=== PATIENT | female | born 1980 | race Caucasian/White ===

== ENCOUNTER → 2019-01-06 | Outpatient (CLI) | payer OTHER ==
[~2019-01-06] MED LIST: METR45GE TP; NORG1TAB90 PO; TRAM50TA2 PO
[2019-01-06 16:35] LABS: BASOPHILS # (AUTO) 0.04 x10^3/uL (0-0.1); BASOPHILS % (AUTO) 0 % (0-1); EOSINOPHILS # (AUTO) 0.17 x10^3/uL (0-0.4); EOSINOPHILS % (AUTO) 2 % (1-7); LYMPHOCYTES # (AUTO) 3.05 x10^3/uL (1-3.4); LYMPHOCYTES % (AUTO) 27 % (22-44); MD NO; MEAN CORPUSCULAR HEMOGLOBIN 28.8 pg (27.0-34.8); MEAN CORPUSCULAR VOLUME 87.1 fL (80-100); MEAN PLATELET VOLUME 8.6 fL (7.4-10.4); MONOCYTES # (AUTO) 0.58 x10^3/uL (0.2-0.8); MONOCYTES % (AUTO) 5 % (2-9); NEUTROPHILS # (AUTO) 7.42 x10^3/uL (1.8-6.8); NEUTROPHILS % (AUTO) 66 % (42-75); PLATELET COUNT 295 x10^3/uL (130-400); RED BLOOD COUNT 4.64 x10^6/uL (3.82-5.3); RED CELL DISTRIBUTION WIDTH 12.9 % (9.6-15.2)
[2019-01-06 16:47] LABS: INTERNATIONAL NORMALIZED RATIO 0.9 (0.93-1.1); PROTHROMBIN TIME 9.5 Seconds (9.6-11.5)
[2019-01-06 16:48] LABS: ALANINE AMINOTRANSFERASE 23 U/L (12-78); ALBUMIN 3.6 g/dL (3.4-5.0); ANION GAP 5 mmol/L (5-15); CALCIUM 9.1 mg/dL (8.5-10.1); CHLORIDE 107 mmol/L (98-107); CREATININE 0.82 mg/dL (0.55-1.02)
[2019-01-06 16:50] LABS: ALKALINE PHOSPHATASE 45 U/L (45-117); BILIRUBIN,TOTAL < 0.1 mg/dL (0.2-1.0); TOTAL PROTEIN 7.2 g/dL (6.4-8.2)
[2019-01-06 16:53] LABS: MICROSCOPIC AUTO
[2019-01-06 16:59] LABS: CULTURE INDICATED? NO
== END | disposition home or self-care (01) ==
LOC: STAR 15:36
PROVIDERS: ATTEND Orthopaedic Surgery Orthopaedic Surgery of the Spine
DX: Z01.818 Encounter for other preprocedural examination (principal)
CPT/HCPCS: 36415; 71046; 80053; 81001; 85025; 85610; 85730; 93005

== ENCOUNTER 2019-01-20 05:47 | Inpatient (IN) | payer OTHER ==
[~2019-01-20] VITALS: Ht 172.7 cm; Wt 85.6 kg
[2019-01-20] MEDS ORDERED: LACTATED RINGERS 1,000 ML IV SCH (05:58)
[2019-01-20 06:23] VITALS: BP 132/81
[2019-01-20 06:42] LABS: HCG UR SG 1.014 (1.003-1.030)
[2019-01-20] MEDS ORDERED: TRIAMCINOLONE ACETONIDE 40 MG/ML, 1ML ONE (07:00)
[2019-01-20] MEDS ORDERED: TOBRAMYCIN SULFATE 1.2 GM IMP ONE ×2 (07:01→10:13)
[2019-01-20] MEDS ORDERED: LIDOCAINE/PF 1.5%-EPI 1:200K, 30ML ONE (07:01)
[2019-01-20] MEDS ORDERED: VANCOMYCIN 1,000 MG ONE ×3 (07:01→10:13)
[2019-01-20] MEDS ORDERED: THROMBIN 5,000 UNIT VIAL TP ONE ×2 (07:01→10:13)
[2019-01-20] MEDS ORDERED: EPINEPHRINE 1 MG/ML, 1ML ONE (07:02)
[2019-01-20] MEDS ORDERED: LIDOCAINE/PF 0.5% ,50ML ONE (07:02)
[2019-01-20] MEDS ORDERED: MIDAZOLAM 1 MG/ML, 2ML ONE ×2 (07:17→10:14)
[2019-01-20] MEDS ORDERED: FENTANYL PF 250 MCG/5ML ONE (07:17)
[2019-01-20] MEDS ORDERED: REMIFENTANIL 2 MG ONE ×2 (07:17→09:24)
[2019-01-20] MEDS ORDERED: PROPOFOL 50 ML ONE ×2 (07:19→08:49)
[2019-01-20] MEDS ORDERED: SCOPOLAMINE PATCH, 1.5MG PATCH.TD72 TD ONE (07:28)
[2019-01-20] MEDS ORDERED: VANCOMYCIN 500 MG ONE (07:59)
[2019-01-20] MEDS ORDERED: DEXAMETHASONE 4 MG/ML, 1ML ONE (09:48)
[2019-01-20] MEDS ORDERED: WATER-INJECTION,STERILE 10 ML IV ONE (09:48)
[2019-01-20] MEDS ORDERED: ONDANSETRON 2MG/ML, 2ML ONE (09:48)
[2019-01-20] MEDS ORDERED: PROPOFOL 10 MG/ML, 20ML ONE (09:48)
[2019-01-20] MEDS ORDERED: LIDOCAINE-MPF 2% ,5ML ONE (09:48)
[2019-01-20] MEDS ORDERED: SUCCINYLCHOLINE 20 MG/ML, 10ML ONE (09:48)
[2019-01-20] MEDS ORDERED: CEFAZOLIN 1,000 MG ONE (09:48)
[2019-01-20] MEDS ORDERED: MEPERIDINE/PF 25MG/ML,1ML ONE (10:11)
[2019-01-20] MEDS ORDERED: OXYcodone 5 MG/5 ML ORAL.SOL UDC ONE (10:14)
[2019-01-20] MEDS ORDERED: FENTANYL PF 100 MCG/2ML ONE (10:14)
[2019-01-20] MEDS ORDERED: HALOPERIDOL 5 MG/ML ONE (10:15)
[2019-01-20] MEDS ORDERED: OXYcodone 5 MG/5 ML ORAL.SOL UDC PO PRN (10:30)
[2019-01-20] MEDS ORDERED: METHOCARBAMOL 1,000 MG in DEXTROSE 5% 100 ML IV SCH (10:30)
[2019-01-20] MEDS ORDERED: ACETAMINOPHEN 325 MG TABLET PO PRN (10:30)
[2019-01-20] MEDS ORDERED: MEPERIDINE/PF 25MG/0.5ML IVPush PRN (10:30)
[2019-01-20] MEDS ORDERED: HYDROmorphone 2 MG/ML, 1ML IVPush PRN (10:30)
[2019-01-20] MEDS ORDERED: HALOPERIDOL 5 MG/ML IV PRN (10:30)
[2019-01-20] MEDS ORDERED: hydrALAzine 20 MG/ML, 1ML IV PRN (10:30)
[2019-01-20] MEDS ORDERED: PROMETHAZINE 25 MG/ML, 1ML IV PRN (10:30)
[2019-01-20] MEDS ORDERED: FENTANYL PF 100 MCG/2ML IV PRN (10:30)
[2019-01-20] MEDS ORDERED: morphine SULFATE 10 MG/ML, 1ML IV PRN (12:30)
[2019-01-20] MEDS ORDERED: ONDANSETRON 2MG/ML, 2ML IV PRN (12:30)
[2019-01-20] MEDS ORDERED: HYDROcodone/APAP 10/325 MG TABLET PO PRN (12:30)
[2019-01-20] MEDS ORDERED: METHOCARBAMOL 750 MG TABLET PO PRN ×2 (12:30→19:00)
[2019-01-20] MEDS ORDERED: VANCOMYCIN PER PHARMACY MC PRN (12:30)
[2019-01-20] MEDS ORDERED: MAGNESIUM HYDROXIDE 8%, 30ML UDC PO PRN (12:30)
[2019-01-20] MEDS ORDERED: BISACODYL 10 MG SUPP PR PRN (12:30)
[2019-01-20] MEDS ORDERED: VANCOMYCIN 1,600 MG in SODIUM CHLORIDE 0.9% 250 ML IV SCH (13:00)
[2019-01-20] MEDS ORDERED: PHARMACOKINETIC CONSULTATION MC ONE (13:00)
[2019-01-20] MEDS ORDERED: PHARMACOKINETIC MONITORING MC PRN (13:00)
[2019-01-20] MEDS: D5%-0.9% NACL+KCL 20MEQ 1,000 ML IV SCH ×2 (15:09→22:19)
[2019-01-20 19:50] VITALS: BP 136/81
[2019-01-20] MEDS: SENNA/DOCUSATE TABLET PO SCH (20:20)
[2019-01-20] MEDS: VANCOMYCIN 1,600 MG in SODIUM CHLORIDE 0.9% 250 ML IV SCH (20:20)
[2019-01-20] MEDS ORDERED: NORGESTIMATE ETHINYL ESTRADIOL HOMEMEDPO SCH (21:00)
[2019-01-20 23:51] VITALS: BP 139/70
[2019-01-20] MEDS: HYDROcodone/APAP 5/325 TABLET PO PRN (23:55)
[2019-01-21 03:49] VITALS: BP 139/81
[2019-01-21 05:51] LABS: CREATININE 0.75 mg/dL (0.55-1.02)
[2019-01-21] MEDS: HYDROcodone/APAP 5/325 TABLET PO PRN (06:46)
[2019-01-21 07:58] VITALS: BP 135/82
[2019-01-21] MEDS: VANCOMYCIN 1,600 MG in SODIUM CHLORIDE 0.9% 250 ML IV SCH (08:23)
[2019-01-21] MEDS: SENNA/DOCUSATE TABLET PO SCH (08:23)
[2019-01-21] MEDS: D5%-0.9% NACL+KCL 20MEQ 1,000 ML IV SCH (10:49)
[2019-01-21] MEDS ORDERED: HYDR-3240 PO (12:22)
[2019-01-21 12:44] VITALS: BP 115/63
== END 2019-01-21 13:45 | disposition home or self-care (01) | DRG 473 ==
LOC: ORIP 05:47 → 4NOR 11:35
PROVIDERS: ADMIT Orthopaedic Surgery Orthopaedic Surgery of the Spine; ATTEND Orthopaedic Surgery Orthopaedic Surgery of the Spine
PROC: 0RB30ZZ Excision of Cervical Vertebral Disc, Open Approach (ICD-10-PCS; 2019-01-20)
PROC: 0RG10J0 Fusion of Cervical Vertebral Joint with Synthetic Substitute, Anterior Approach, Anterior Column, Open Approach (ICD-10-PCS; principal; 2019-01-20 07:30)
DX: M50.122 Cervical disc disorder at C5-C6 level with radiculopathy (principal); M48.02 Spinal stenosis, cervical region
CPT/HCPCS: 36415; 72040; J3260; J3490; 81025; 82565; 84520; 95938; 95941; C1713; G0378; J0171; J0690; J1100; J2001; J2250; J2405; J2704; J3010; J3301; J3370; C1762; J0330; J2800; J3480; J7050; J7120